=== PATIENT | female | born 1955 | race Caucasian/White ===

== ENCOUNTER 2023-03-05 23:22 | Emergency (ER) | payer OTHER, MEDICARE ==
[2023-03-05 23:32] VITALS: BP 159/80; PULSE 110; RESP 18; TEMP 98.8; BMI 22.8
== END 2023-03-06 00:04 | disposition home or self-care (01) ==
LOC: FER 23:22
DX: R73.9 Hyperglycemia, unspecified (principal)
CPT/HCPCS: 82962; 99282-25